=== PATIENT | female | born 1955 | race Caucasian/White ===

== ENCOUNTER 2017-09-05 20:21 | Emergency (ER) | payer BC, MEDICAID ==
[2017-09-05 20:31] VITALS: BP 154/103
[2017-09-05] MEDS ORDERED: oxyCODONE 5 MG Tab PO ONE (20:50)
[2017-09-05] MEDS ORDERED: Ketorolac 30 MG/ML SDV IM ONE (20:50)
--- NOTE | 2017-09-05 21:49 | EDM.PDOC ---
ED HPI GENERAL MEDICAL PROBLEM - General Chief Complaint: Chest Pain Stated Complaint: L RIB PAIN Time Seen by Provider: 09/05/17 20:47 Source of Information: Reports: Patient History Limitations: Reports: No Limitations - History of Present Illness INITIAL COMMENTS - FREE TEXT/NARRATIVE: The patient is a 62-year-old female with a chief complaint of left chest wall pain after striking her chest against the sliding door 4 days ago. She has some pain in the left lower front of her chest. It is worse with breathing. No shortness of breath. States that she hasn't taken anything for pain except for her usual dose of evening OxyContin which she takes for chronic pain. Denies additional injury. Pain is sharp. No relieving factors. No fever or recent illness or cough. Left Chest Pain Score (Numeric/FACES): 10 - Related Data Allergies Allergy/AdvReac Type Severity Reaction Status Date / Time No Known Allergies Allergy Verified 09/05/17 21:52 Home Meds: Home Meds Escitalopram Oxalate [Lexapro] 10 mg PO DAILY 09/14/15 [History] Pantoprazole [ProTONIX] 40 mg PO BID 09/14/15 [History] Docusate Sodium [Colace] 100 mg PO BID #60 cap 09/17/15 [Rx] oxyCODONE ER [OxyCONTIN] 20 mg PO BEDTIME 09/05/17 [History] Past Medical History Respiratory History: Reports: Asthma Gastrointestinal History: Reports: GERD Other Gastrointestinal History: pancreatitis. PUD Genitourinary History: Reports: UTI, Recurrent Musculoskeletal History: Reports: Arthritis, Back Pain, Chronic, Fracture, Fibromyalgia Other Musculoskeletal History: femur right Psychiatric History: Reports: Anxiety Endocrine/Metabolic History: Reports: Other (See Below) Other Endocrine/Metabolic History: hypoglycemia Hematologic History: Reports: Blood Transfusion(s) - Past Surgical History HEENT Surgical History: Reports: Cataract Surgery, Tonsillectomy GI Surgical History: Reports: Bariatric Procedure, Cholecystectomy Musculoskeletal Surgical History: Reports: Knee Replacement Social & Family History - Family History Family Medical History: Noncontributory Cardiac: Reports: NM - Tobacco Use Smoking Status *Q: Current Every Day Smoker Years of Tobacco use: 40 Packs/Tins Daily: 0.7 - Caffeine Use Caffeine Use: Reports: None - Recreational Drug Use Recreational Drug Use: No ED ROS GENERAL - Review of Systems Review Of Systems: See Below Constitutional: Denies: Fever HEENT: Reports: No Symptoms Respiratory: Denies: Shortness of Breath Cardiovascular: Reports: Chest Pain Endocrine: Reports: No Symptoms GI/Abdominal: Denies: Abdominal Pain Musculoskeletal: Reports: No Symptoms Skin: Reports: No Symptoms Neurological: Reports: No Symptoms ED EXAM, GENERAL - Physical Exam Exam: See Below Exam Limited By: No Limitations General Appearance: Alert, WD/WN, No Apparent Distress Eye Exam: Bilateral Eye: Normal Inspection Ears: Normal External Exam Nose: Normal Inspection Throat/Mouth: Normal Inspection, Normal Voice, No Airway Compromise Head: Atraumatic, Normocephalic Neck: Normal Inspection, Supple, Non-Tender, Full Range of Motion Respiratory/Chest: No Respiratory Distress, Lungs Clear, Normal Breath Sounds, No Accessory Muscle Use, Other (Left anterior lateral chest wall tenderness and area of ribs 10 through 12, no crepitus, no bruising, no swelling, no deformity) Cardiovascular: Normal Peripheral Pulses, Regular Rate, Rhythm, No Edema, No Murmur GI/Abdominal: Soft, Non-Tender, No Distention. No: Rebound Back Exam: Normal Inspection. No: CVA Tenderness (L), CVA Tenderness (R) Extremities: Normal Inspection Neurological: Alert, Oriented, Normal Cognition, No Motor/Sensory Deficits Psychiatric: Normal Affect, Normal Mood Skin Exam: Warm, Dry, Intact, Normal Color, No Rash Course - Vital Signs Last Recorded V/S: Last Vital Signs Temp 37.3 C 09/05/17 20:29 Pulse 80 09/05/17 20:29 Resp 18 09/05/17 20:29 BP 154/103 H 09/05/17 20:29 Pulse Ox 100 09/05/17 20:29 - Orders/Labs/Meds Orders: Active Orders 24 hr Category Date Time Status Chest 2V [CR] Stat Exams 09/05/17 20:50 Taken Meds: Medications Discontinued Medications Generic Name Dose Route Start Last Admin Trade Name Elsa PRN Reason Stop Dose Admin Ketorolac Tromethamine 30 mg 09/05/17 20:50 09/05/17 21:10 Toradol IM 09/05/17 20:51 30 mg ONETIME ONE Administration Oxycodone HCl 5 mg 09/05/17 20:50 09/05/17 21:09 Oxycodone PO 09/05/17 20:51 5 mg ONETIME ONE Administration - Re-Assessments/Exams Free Text/Narrative Re-Assessment/Exam: 09/06/17 00:55 Chest x-ray shows no apparent rib fracture, no acute abnormality. There is no physical exam evidence of trauma except for tenderness of the chest wall. She may have some mild underlying contusion. Encouraged her to ice it and use acetaminophen. Given the mechanism of injury and the physical exam findings I really don't feel that narcotic is indicated and explain that to the patient. She may take her usual OxyContin as needed for pain as well. Departure - Departure Time of Disposition: 21:48 Disposition: Home, Self-Care 01 Clinical Impression: Chest pain Qualifiers: Chest pain type: unspecified Qualified Code(s): R07.9 - Chest pain, unspecified Instructions: Nonspecific Chest Pain, [id number] Referrals: Dannie Mohan MD [Primary Care Provider] - Forms: ED Department Discharge Additional Instructions: 1. Take tylenol as needed for pain 2. Continue your usual oxycontin 3. Follow up with your primary care provider this week if you continue to have pain - My Orders Last 24 Hours: My Active Orders 09/05/17 20:50 Chest 2V [CR] Stat - Assessment/Plan Last 24 Hours: My Active Orders 09/05/17 20:50 Chest 2V [CR] Stat
--- NOTE | 2017-09-06 08:26 | CR ---
Chest: Two views of the chest were obtained. Comparison: Prior chest x-ray of 09/14/15. Heart size is normal. Tortuous thoracic aorta is seen. Lungs are clear with no acute parenchymal densities. Mild scoliosis and degenerative change are noted within the spine. Surgical clips are seen within the abdomen. Impression: 1. Nothing acute is seen on two-view chest x-ray. Diagnostic code #2
== END 2017-09-05 22:00 | disposition home or self-care (01) ==
LOC: JD.ED 20:21
DX: R07.89 Other chest pain (principal); F41.9 Anxiety disorder, unspecified; F17.210 Nicotine dependence, cigarettes, uncomplicated; Z79.899 Other long term (current) drug therapy
CPT/HCPCS: 71046; 96372; 99283; A9270; J1885